=== PATIENT | male | born 1980 | race Caucasian/White ===

== ENCOUNTER 2017-08-22 11:13 | Emergency (ER) | payer BC, OTHER ==
[~2017-08-22] VITALS: Ht 180.3 cm; Wt 80.1 kg
[~2017-08-22 11:13] MED LIST: ATV1 PO; INDSR80 PO; METH-589 PO; RISP0.258 PO
[2017-08-22 11:20] VITALS: TEMP 36.5; Ht 180.3 cm; Wt 80.1 kg
[2017-08-22] MEDS ORDERED: SYN25 (12:34)
[2017-08-22] MEDS ORDERED: BACI500O11 TOP (12:49)
--- NOTE | 2017-08-22 12:50 | EMERGENCY ROOM VISIT NOTE ---
History First contact with patient: 11:27 Chief Complaint: HAND PAIN/INJURY Stated Complaint: R HAND PAIN History of Present Illness Patient is a [id number] 37-year-old male who presents the emergency department accompanied by his father for evaluation of a skin condition on his right hand that has been present for about a week and a half. Historically, patient relates that he had been dealing with dry, cracked skin on the right second finger for about 7 or 8 months. He is treating this with topical agents like Vaseline. About a week and a half ago, on 08/12, he was lifting weights, and states that he scraped the right second finger on the bar, ripping/ sloughing off some of the skin. He had been cleansing the area with soap and water initially, and applying triple antibiotic ointment and then Vaseline to the area. He states that progressively the skin on the palm of his hand began to flake, scale and eventually slough off. It is also beginning to involve now the palmar third and fourth fingers. He has started using warm water and vinegar to wash. For a time he was also wearing a plastic glove over a dressing in order to keep the moisture in. He denies any pain. He denies any changes in range of motion. He noticed some tingling in the right second finger today. He had itching, and has been scratching at the area, he applied a hydrocortisone cream to the area which did help with the itching. He has not had any drainage or discharge from the area. Has not previously sought any attention for this. Had not seen dermatology prior for the dermatitis involving the index finger that had been present for several months. As stated above, he has been using Vaseline, antibiotic ointment and a cortisone cream to the area. He denies any other exposures such as new lotions, soaps or detergents which could have exacerbated his symptoms, he has no other lesions or skin problems elsewhere. Review of Systems Review of systems as per HPI. All other systems reviewed were negative. 10 systems reviewed. Past Medical/Surgical History Medical Problems: (1) ANXIETY STATE NOS (2) BENIGN HYPERTENSION (3) Delirium (4) HYPERTENSION NOS (5) Hyperthyroidism (6) HYPOTHYROIDISM NOS Surgical Problems: (1) History of oral surgery Electronic medical records are reviewed and summarized as above/below. See Problem List. His tetanus is up-to-date. Social History Smoking Status: Never Smoker Alcohol Use: none Marital Status: single Housing Status: lives with family Occupation Status: unemployed Current/Historical Medications Scheduled Bacitracin (Topical) (Bacitracin), 1 APPLN TOP BID Miscellaneous Medications Levothyroxine Sodium (Synthroid), Unknown Dose Physical Exam Vital Signs Date Time Temp Pulse Resp B/P (MAP) Pulse Ox O2 Delivery O2 Flow Rate FiO2 08/22/17 13:20 62 20 127/82 99 08/22/17 11:20 36.5 67 18 166/77 98 Room Air Physical Exam CONSTITUTIONAL: Patient is a pleasant, well-appearing 37-year-old male who is awake and alert and in no acute distress. INTEGUMENTARY: Examination of the palmar aspect of the right hand notes the skin to be entirely sloughed off the circumferential index finger, extending into the webspace between the thumb and index finger and across the palm to the base of the ring finger where it extends to the palm of the ring finger to the mid proximal phalanx and to the PIP joint of the middle finger. There is mild erythema of the base of the wound with granulation tissue present. There is no swelling, no drainage or discharge present. The area is nontender to palpation. MUSCULOSKELETAL: He has full range of motion of the fingers of the right hand. Hand is neurovascularly intact. Medical Decision & Procedures ED Course The patient was seen and evaluated as above. He has significant sloughing of tissue on the palmar aspect of the right hand. The injury almost mimics a burn in its present condition now, with nonviable tissue at the leading edge of the wound. The patient's hand was cleansed with chlorhexidine and irrigated with normal saline solution. A superficial wound culture was obtained. Nonviable tissue was excised. Wound was then cleansed with bacitracin and a light dressing. The patient had an underlying dermatitis of the right second finger for an extended period of time, sustained a skin injury to that finger about a week and half ago which has progressed to involve more of the palm and adjacent fingers. Differential diagnoses entertained included chemical burn injury, contact dermatitis, eczema, cellulitis, fungal infection, among others. It was felt that the patient would benefit from wound care evaluation given the area affected on his dominant hand. He will cleanse with mild soap and water and use bacitracin ointment. Avoid occlusive dressings and stop the steroid cream at this time. As he does not have overt signs of infection this time, antibiotics were held pending culture and wound care evaluation. Patient was comfortable with this plan as it was discussed with him. He was discharged in stable condition. Medical Decision See emergency department course. Medication Reconcilliation Current Medication List: was personally reviewed by me Blood Pressure Screening Patient's blood pressure: Normal blood pressure Blood pressure disposition: Did not require urgent referral Impression Primary Impression: Hand dermatitis Departure Information Prescriptions Bacitracin (Topical) (BACITRACIN) 500 Unit/Gm Oin 1 APPLN TOP BID for 7 Days, #30 GM 1 Refill Prov: Cortney Urrutia PA 08/22/17 Referrals Loida Villalobos, C.R.N.P. (PCP) Patient Instructions My [facility] Additional Instructions Cleanse area daily with a mild soap and water, dry well and cover with a thin layer of bacitracin ointment and a light dressing. May remove the bandage to allow the hand to breathe. Avoid using any occlusive bandages or gloves. Stop hydrocortisone cream. Follow-up with the wound care center as arranged.
[2017-08-22 13:20] VITALS: BP 127/82; PULSE 62; O2SAT 99
--- NOTE | 2017-08-22 14:17 | Pharmacy Progress Note ---
ED Pharmacist Progress Note Date of Service: Aug 22, 2017. Received call from Neal [phone] requesting clarification on location to apply Bacitracin ointment. I informed them that the patient should "apply to affected areas on the right hand".
--- NOTE | 2017-08-25 13:21 | Pharmacy Progress Note ---
ED Pharmacist Culture FollowUp Date of Service: Aug 25, 2017. Culture result was given to provider who originally saw the patient (Cortney Urrutia PA-C) and was discussed with me. After discussing in length the patient 's history and infection presentation, It was decided the patient would be discharged on doxycycline for the MRSA and Voriconazole PO for the yeast non jaycee albicans in the surface wound culture. I advised to provide no longer than 1 week of voriconazole given monitoring parameters. Furthermore, since there were no baseline labs available, I advised the provider to educate on signs and symptoms of hepatotoxicity. To our knowledge, the patient has no history of hepatic dysfunction. The provider stated she called the patient to inform of results and medication plan as well as stress the importance of dermatology follow up as soon as possible. I later received a call from the pharmacy stating that the voriconazole would require a prior auth. After discussing with the provider again, I cancelled the voriconazole prescription in favor of fluconazole 200mg q24 X 7 days.
== END 2017-08-22 13:20 | disposition home or self-care (01) ==
LOC: C.EDB 11:14 → C.EDC 13:20
DX: L30.9 Dermatitis, unspecified (principal); I10 Essential (primary) hypertension; E03.9 Hypothyroidism, unspecified; E05.90 Thyrotoxicosis, unspecified without thyrotoxic crisis or storm